=== PATIENT | female | born 1945 | race African-American/Black ===

== ENCOUNTER → 2020-11-30 | Outpatient (CLI) | payer OTHER ==
--- NOTE | 2020-11-30 14:59 | RAD ---
INDICATION: 75 years of age asymptomatic female patient presents for screening mammography. TECHNIQUE: Full field craniocaudal and mediolateral oblique images of both breasts were obtained usi ng digital technique with tomosynthesis and also analyzed with computer-aided detection software. COMPARISON: Prior mammographic imaging 11/05/12, 11/19/13 BREAST COMPOSITION: Category B: There are scattered fibroglandular densities. FINDINGS: Benign calcifications are present. The parenchymal pattern appears stable. No suspicious masses, microcalcifications or architectural distortion is present to suggest malignanc y in either breast. The visualized axillae are unremarkable. IMPRESSION: No mammographic evidence of malignancy. RECOMMENDATION: Annual screening mammography is recommended, unless clinically indicated sooner based on symptoms or change in physical exam. BIRADS 2: BENIGN This study was interpreted with the benefit of Computerized Aided Detection (CAD). Patient information is entered into the reminder system with a target due date for the next screening mammogram. Mammography is the most sensitive method for finding small breast cancers, but it does not detect the m all and is not a substitute for careful clinical examination. A negative mammogram does not negate a clinically suspicious finding and should not result in delay in biopsying a clinically suspicious a bnormality. "Our facility is accredited by the [employer] Mammography Program." Electronically signed by: Mike Sanchez MD (11/30/2020 2:56 PM) [facility]
== END ==
LOC: MAMMO 15:41
PROVIDERS: ATTEND Family Medicine
DX: Z12.31 Encounter for screening mammogram for malignant neoplasm of breast (principal)
CPT/HCPCS: 77063; 77067